=== PATIENT | female | born 1940 | race Caucasian/White ===

== ENCOUNTER 2018-04-07 16:35 | Inpatient (IN) | payer OTHER ==
[2018-04-07] MEDS ORDERED: NITROGLYCERIN 0.4 MG/TAB SL ONE (17:07)
[2018-04-07] MEDS ORDERED: ASPIRIN 81 MG CHEWABLE TABLET ONE (17:07)
[2018-04-07 17:11] LABS: Absolute Lymphocytes (CBC) 3.1 K/uL (0.7-4.9); Absolute Monocytes 0.9 K/uL (0.1-1.3); Absolute Neutrophil 5.4 K/uL (1.8-8.0); Basophils % 0.2 % (0-1.3); Eosinophils % 0.9 % (0-4.4); Lymphocytes % 32.5 % (15.3-44.8); MCH 30.5 pg (27.0-35.0); MCV 90.7 fL (80-100); RBC Red Blood Cell Count 4.85 M/uL (3.86-4.86)
--- NOTE | 2018-04-07 17:15 | RAD REPORT ---
EXAM DESCRIPTION: RAD - Chest Single View - 04/07/2018 5:00 pm CLINICAL HISTORY: CHEST PAIN<Reason For Exam>CHEST PAIN COMPARISON: CHEST SINGLE VIEW dated 10/27/2015; CHEST PA AND LAT 2 VIEW dated 07/23/2010<Comparisons> TECHNIQUE: AP portable chest image was obtained 1657 hour . FINDINGS: Lung volumes are low accentuating baseline interstitial pattern. This could potentially ma sk early interstitial edema or infiltrate. Mediastinum is distorted by rotation. No peripheral mass o r consolidation. Heart and vasculature are normal. No measurable pleural effusion and no pneumothorax . No gross bony abnormality seen. No acute aortic findings suspected. IMPRESSION: No peripheral mass or consolidation. Prominent lung markings due to shallow inspiration. This could mask early interstitial edema or infil trate.
[2018-04-07 17:26] LABS: Protime INR 0.93
[2018-04-07 17:41] LABS: Albumin 3.6 g/dL (3.4-5.0); Bilirubin Direct 0.1 mg/dL (0-0.2); Bilirubin Total 0.2 mg/dL (0.2-1.0); CKMB Creatine Kinase MB 3.7 ng/mL (0.3-3.6); Magnesium 2.2 mg/dL (1.8-2.4); Potassium 3.9 mmol/L (3.5-5.1); Protein, Total 7.1 g/dL (6.4-8.2)
--- NOTE | 2018-04-07 18:13 | ER ---
Nurse's Notes [facility] Name: Kyleigh Pace Age: 77 yrs Sex: Female : 1940 Arrival Date: 04/07/2018 Time: 16:36 Bed 7 Private MD: Mercedes Corrales Diagnosis: Non-ST elevation (NSTEMI) myocardial infarction Presentation: 04/07 16:44 Presenting complaint: Patient states: i think i am having a heart attack, chest pain, ch worst of my life in the middle of my chest, feels like someone punched me. happened after I walked out of my pain management drs office. I took two baby asprin at home. pain started at 1500. Transition of care: patient was not received from another setting of care. Onset of symptoms was April 07, 2018 at 15:00. Risk Assessment: Do you want to hurt yourself or someone else? Patient reports no desire to harm self or others. Initial Sepsis Screen: Does the patient meet any 2 criteria? No. Patient's initial sepsis screen is negative. Does the patient have a suspected source of infection? No. Patient's initial sepsis screen is negative. Care prior to arrival: Medication(s) given: ASA, 81 mg, x 2. 16:44 Method Of Arrival: Ambulatory 16:44 Acuity: ENOC 2 Triage Assessment: 16:46 General: Appears in no apparent distress. uncomfortable, Behavior is anxious. Pain: Complains of pain in xyphoid area and mid-sternal area Pain currently is 8 out of 10 on a pain scale. Historical: - Allergies: 16:46 Codeine; 16:46 Morphine; - Home Meds: 16:46 losartan oral oral [Active]; Atenolol Oral [Active]; Prilosec Oral [Active]; Tramadol Oral [Active]; - PMHx: 16:46 cervical stenosis; Hypertension; scoliosis; GERD; chronic neck and back pain; - PSHx: 16:46 Hysterectomy; - Immunization history:: Adult Immunizations up to date, Pneumococcal vaccine is up to date, Flu vaccine is up to date. - Social history:: Smoking status: Patient/guardian denies using tobacco, Patient uses alcohol, on a daily basis. - Ebola Screening: : Patient negative for fever greater than or equal to 101.5 degrees Fahrenheit, and additional compatible Ebola Virus Disease symptoms Patient denies exposure to infectious person Patient denies travel to an Ebola-affected area in the 21 days before illness onset No symptoms or risks identified at this time. Screenin:46 Abuse screen: Denies threats or abuse. Denies injuries from another. Nutritional mg2 screening: No deficits noted. Tuberculosis screening: No symptoms or risk factors identified. Fall Risk IV access (20 points). Assessment: 16:57 General: Appears uncomfortable, Behavior is calm, cooperative. Pain: Complains of pain mg2 in chest and mid-sternal area Pain does not radiate. Pain currently is 5 out of 10 on a pain scale. Quality of pain is described as aching, Pain began gradually, 2 hours ago. Is intermittent. Neuro: Level of Consciousness is awake, alert, obeys commands, Oriented to person, place, time, situation. Cardiovascular: Capillary refill < 3 seconds Patient's skin is warm and dry. Rhythm is sinus rhythm Chest pain is described as "worst pain of my life", quality is pressure, is located in chest wall began 2 hours prior to arrival episodes are intermittent. Respiratory: Airway is patent Respiratory effort is even, unlabored, Respiratory pattern is regular, symmetrical. GI: Reports nausea. : No signs and/or symptoms were reported regarding the genitourinary system. EENT: No signs and/or symptoms were reported regarding the EENT system. Derm: Skin is intact, Skin is pink, warm \\T\\ dry. normal. Musculoskeletal: Circulation, motion, and sensation intact. 17:44 Reassessment: Patient appears in no apparent distress at this time. Patient and/or mg2 family updated on plan of care and expected duration. Pain level reassessed. Patient is alert, oriented x 3, equal unlabored respirations, skin warm/dry/pink. 18:37 Reassessment: Patient appears in no apparent distress at this time. Patient and/or mg2 family updated on plan of care and expected duration. Pain level reassessed. Patient is alert, oriented x 3, equal unlabored respirations, skin warm/dry/pink. 19:49 Reassessment: Patient appears in no apparent distress at this time. Patient and/or mg2 family updated on plan of care and expected duration. Pain level reassessed. Patient is alert, oriented x 3, equal unlabored respirations, skin warm/dry/pink. 04/08 00:01 Reassessment: further documentation is in [facility], patient is icu-hold. mg2 03:04 Reassessment: patient endorsed to EDISON Lima for continuity of care. mg2 06:29 Reassessment: pt bilateral groin shaved for laborer tin can. pt vomited and wet the bed, pt ak1 requested not to moved and to have linens changed while on the laborer tin can table. report given to laborer tin can at bedside. . Vital Signs: 04/07 16:46 BP 177 / 93; Pulse 83; Resp 15; Temp 98.1; Pulse Ox 97% on R/A; Weight 76.66 kg; Height ch 5 ft. 5 in. (165.10 cm); Pain 8/10; 17:44 BP 133 / 81; Pulse 78; Resp 18; Pulse Ox 97% on R/A; mg2 18:37 BP 158 / 97; Pulse 82; Resp 18; Pulse Ox 97% ; Pain 6/10; mg2 19:49 BP 138 / 83; Pulse 89; Resp 18; Pulse Ox 96% on R/A; Pain 5/10; mg2 22:58 BP 144 / 81; Pulse 77; Resp 18; Pulse Ox 96% on R/A; Pain 5/10; mg2 23:09 BP 154 / 87; Pulse 81; Resp 18; Pulse Ox 94% on R/A; Pain 4/10; mg2 16:46 Body Mass Index 28.12 (76.66 kg, 165.10 cm) ED Course: 16:36 Patient arrived in ED. sb2 16:37 Mercedes Corrales MD is Private Physician. sb2 16:39 [facility] jr8 16:39 Crow Pulido MD is Attending Physician. jr8 16:45 Triage completed. ch 16:45 Lucas Baumann, EDISON is Primary Nurse. mg2 16:46 Patient has correct armband on for positive identification. residential monitor on. Pulse mg2 ox on. NIBP on. Door closed. Warm blanket given. 16:46 Arm band placed on left wrist. Patient placed in an exam room, on a stretcher. ch 16:57 No provider procedures requiring assistance completed. Inserted saline lock: 20 gauge mg2 in left wrist, using aseptic technique. Blood collected. by senior scheduler Taylor. 16:57 Patient maintains SpO2 saturation greater than 95% on room air. mg2 16:58 X-ray completed. Portable x-ray completed in exam room. Patient tolerated procedure ml well. 16:59 XRAY Chest (1 view) In Process Unspecified. EDMS 17:08 EKG done, by tire and lube technician. reviewed by Juan F WALKER. sm3 18:11 Neftaly Nicolas MD is Hospitalizing Provider. jr8 21:32 Repeat lab(s) drawn. by me, sent to lab. mg2 22:10 Notified Nurse Practitioner and/or Physician Neurodiagnostic Technologist of a critical lab result(s), lp1 Troponin 5.54. 04/08 02:57 Patient admitted, IV remains in place. ak1 03:15 Janie Song, RN is Primary Nurse. ak1 Administered Medications: 04/07 17:08 Drug: Nitroglycerin 0.4 mg Route: Sublingual; mg2 17:43 Follow up: Response: No adverse reaction; Marked relief of symptoms mg2 17:12 Drug: Aspirin Chewable Tablet 162 mg Route: PO; mg2 17:43 Follow up: Response: No adverse reaction; Marked relief of symptoms mg2 18:36 Drug: Nitroglycerin Ointment 2 % 1 inches Route: Transdermal; Site: anterior chest wall;mg2 19:10 Follow up: Response: No adverse reaction; Marked relief of symptoms mg2 18:37 Drug: Effient 60 mg Route: PO; mg2 19:10 Follow up: Response: No adverse reaction; Marked relief of symptoms mg2 18:37 Drug: Lovenox 1 mg/kg Route: Sub-Q; Site: right lower abdomen; mg2 19:10 Follow up: Response: No adverse reaction mg2 20:49 Drug: fentaNYL (PF) 25 mcg Route: IVP; Site: left wrist; mg2 23:08 Follow up: Response: No adverse reaction mg2 20:49 Drug: Zofran 4 mg Route: IVP; Site: left wrist; mg2 23:08 Follow up: Response: No adverse reaction; Marked relief of symptoms mg2 21:30 Drug: Nitro Drip - (Nitroglycerin 50 mg, D5W 250 ml) Route: IV; Rate: 5 mcg/min; Site: mg2 left wrist; 04/08 02:58 Follow up: IV Status: Infusion continued upon admission ak1 04/07 22:38 Drug: Ativan 0.5 mg Route: IVP; Site: left wrist; mg2 23:09 Follow up: Response: No adverse reaction; Marked relief of symptoms mg2 04/08 00:08 Drug: Zofran 4 mg Route: IVP; Site: left wrist; mg2 01:30 Follow up: Response: No adverse reaction; Marked relief of symptoms mg2 Outcome: 04/07 18:12 Decision to Hospitalize by Provider. jr8 04/08 02:47 Admitted to ER Hold. Please see [facility] for further documentation. ak1 critical Instructed on the need for admit. 06:31 Patient left the ED. ak1 Signatures: Dispatcher [employer] EDMS Maria A Gamino, RN RN Kayleen Navas Laura, RN RN [email or web address] Juan F Flores PA PA jr8 Janie Song RN RN ak1 Kat Sim sb2 Lucas Baumann RN RN mg2 Fawn Haney 3
--- NOTE | 2018-04-07 18:14 | EDPHYS ---
Physician Documentation [facility] Name: Kyleigh Pace Age: 77 yrs Sex: Female : 1940 Arrival Date: 04/07/2018 Time: 16:36 Bed 7 Private MD: Mercedes Corrales ED Physician Crow Pulido HPI: 04/07 18:05 This 77 yrs old Female presents to ER via Ambulatory with complaints of Chest jr8 Pain > 30 y/o. 18:05 The patient or guardian reports chest pain that is located primarily in the substernal jr8 area. Onset: acutely, today. The pain radiates to back. Associated signs and symptoms: Pertinent positives: diaphoresis, nausea. The chest pain is described as a heaviness, a pressure. Duration: The patient or guardian reports a single episode, that is still ongoing. Modifying factors: The symptoms are alleviated by NTG, the symptoms are aggravated by emotionally stressful situations. Severity of pain: At its worst the pain was moderate in the emergency department the pain has improved mildly. The patient has not experienced similar symptoms in the past. The patient has not recently seen a physician. Historical: - Allergies: 16:46 Codeine; ch 16:46 Morphine; ch - Home Meds: 16:46 losartan oral oral [Active]; Atenolol Oral [Active]; Prilosec Oral [Active]; Tramadol ch Oral [Active]; - PMHx: 16:46 cervical stenosis; Hypertension; scoliosis; GERD; chronic neck and back pain; ch - PSHx: 16:46 Hysterectomy; ch - Immunization history:: Adult Immunizations up to date, Pneumococcal vaccine is up to date, Flu vaccine is up to date. - Social history:: Smoking status: Patient/guardian denies using tobacco, Patient uses alcohol, on a daily basis. - Ebola Screening: : Patient negative for fever greater than or equal to 101.5 degrees Fahrenheit, and additional compatible Ebola Virus Disease symptoms Patient denies exposure to infectious person Patient denies travel to an Ebola-affected area in the 21 days before illness onset No symptoms or risks identified at this time. ROS: 18:05 Eyes: Negative for injury, pain, redness, and discharge, ENT: Negative for injury, jr8 pain, and discharge, Neck: Negative for injury, pain, and swelling, Respiratory: Negative for shortness of breath, cough, wheezing, and pleuritic chest pain, Abdomen/GI: Negative for abdominal pain, nausea, vomiting, diarrhea, and constipation, Back: Negative for injury and pain, MS/Extremity: Negative for injury and deformity, Skin: Negative for injury, rash, and discoloration, Neuro: Negative for headache, weakness, numbness, tingling, and seizure. 18:05 Cardiovascular: Positive for chest pain, Negative for edema, orthopnea, palpitations, paroxysmal nocturnal dyspnea. Exam: 18:05 Eyes: Pupils equal round and reactive to light, extra-ocular motions intact. Lids and jr8 lashes normal. Conjunctiva and sclera are non-icteric and not injected. Cornea within normal limits. Periorbital areas with no swelling, redness, or edema. ENT: Nares patent. No nasal discharge, no septal abnormalities noted. Tympanic membranes are normal and external auditory canals are clear. Oropharynx with no redness, swelling, or masses, exudates, or evidence of obstruction, uvula midline. Mucous membranes moist. Neck: Trachea midline, no thyromegaly or masses palpated, and no cervical lymphadenopathy. Supple, full range of motion without nuchal rigidity, or vertebral point tenderness. No Meningismus. Cardiovascular: Regular rate and rhythm with a normal S1 and S2. No gallops, murmurs, or rubs. Normal PMI, no JVD. No pulse deficits. Respiratory: Lungs have equal breath sounds bilaterally, clear to auscultation and percussion. No rales, rhonchi or wheezes noted. No increased work of breathing, no retractions or nasal flaring. Abdomen/GI: Soft, non-tender, with normal bowel sounds. No distension or tympany. No guarding or rebound. No evidence of tenderness throughout. Back: No spinal tenderness. No costovertebral tenderness. Full range of motion. Skin: Warm, dry with normal turgor. Normal color with no rashes, no lesions, and no evidence of cellulitis. MS/ Extremity: Pulses equal, no cyanosis. Neurovascular intact. Full, normal range of motion. Neuro: Awake and alert, GCS 15, oriented to person, place, time, and situation. Cranial nerves II-XII grossly intact. Motor strength 5/5 in all extremities. Sensory grossly intact. Cerebellar exam normal. Normal gait. 18:05 ECG was reviewed by the Attending Physician. Vital Signs: 16:46 BP 177 / 93; Pulse 83; Resp 15; Temp 98.1; Pulse Ox 97% on R/A; Weight 76.66 kg; Height ch 5 ft. 5 in. (165.10 cm); Pain 8/10; 17:44 BP 133 / 81; Pulse 78; Resp 18; Pulse Ox 97% on R/A; mg2 18:37 BP 158 / 97; Pulse 82; Resp 18; Pulse Ox 97% ; Pain 6/10; mg2 19:49 BP 138 / 83; Pulse 89; Resp 18; Pulse Ox 96% on R/A; Pain 5/10; mg2 22:58 BP 144 / 81; Pulse 77; Resp 18; Pulse Ox 96% on R/A; Pain 5/10; mg2 23:09 BP 154 / 87; Pulse 81; Resp 18; Pulse Ox 94% on R/A; Pain 4/10; mg2 16:46 Body Mass Index 28.12 (76.66 kg, 165.10 cm) ch MDM: 16:39 Patient medically screened. jr8 18:05 HEART Score: History: Highly Suspicious (2), ECG: Non specific repolarization jr8 disturbance / LBTB / PM (1), Age: > or = 65 years (2), Risk Factors: 1 or 2 risk factors (1), [Hypercholesterolemia] [Hypertension] Troponin: > 1 and < 3 x normal limit (1). The patient was given aspirin in the Emergency Department. Data reviewed: vital signs, nurses notes, lab test result(s), EKG, radiologic studies, plain films. Data interpreted: Pulse oximetry: on room air is 97 %. Interpretation: normal. Counseling: I had a detailed discussion with the patient and/or guardian regarding: the historical points, exam findings, and any diagnostic results supporting the discharge/admit diagnosis, lab results, radiology results, the need for further work-up and treatment in the hospital. Physician consultation: Neftaly Nicolas MD was called at 18:09, was contacted at 18:09, regarding admission, to the ICU, consult, patient's condition, and will see patient. ED course: Dr. Jones consulted and will see patient as well today. NPO after midnight . 18:10 ED course: Discussed in detail findings of labs and EKG with both family and patient. jr8 The need for ICU with close monitoring as there is concerning findings of cardiac related injury. Patient and family good with this. 04/07 16:47 Order name: Basic Metabolic Panel; Complete Time: 17:43 ch 04/07 16:47 Order name: CBC with Diff; Complete Time: 17:24 ch 04/07 16:47 Order name: Ckmb; Complete Time: 17:43 ch 04/07 16:47 Order name: CPK; Complete Time: 17:43 ch 04/07 16:47 Order name: LFT's; Complete Time: 17:43 ch 04/07 16:47 Order name: Magnesium; Complete Time: 17:43 ch 04/07 16:47 Order name: NT PRO-BNP; Complete Time: 17:43 ch 04/07 16:47 Order name: PT-INR; Complete Time: 17:35 ch 04/07 16:47 Order name: Ptt, Activated; Complete Time: 17:35 ch 04/07 16:47 Order name: Troponin (emerg Dept Use Only); Complete Time: 17:55 ch 04/07 21:57 Order name: Lipid Profile; Complete Time: 22:02 EDMT 04/07 22:09 Order name: Troponin I; Complete Time: 22:12 EDMT 04/07 22:59 Order name: Urine Dipstick--Ancillary (enter results) ny 04/07 23:28 Order name: Urine Dipstick-Ancillary; Complete Time: 23:43 EDMT 04/07 16:47 Order name: XRAY Chest (1 view); Complete Time: 17:17 ch 04/07 16:47 Order name: EKG; Complete Time: 16:48 04/07 20:27 Order name: CONS Physician Consult EDMT 04/08 05:22 Order name: CBC with Automated Diff EDMT 04/08 05:27 Order name: Basic Metabolic Panel EDMT 04/08 05:38 Order name: Troponin I EDMT 04/07 16:47 Order name: Cardiac monitoring; Complete Time: 16:55 ch 04/07 16:47 Order name: EKG - Nurse/Tech; Complete Time: 16:55 04/07 16:47 Order name: IV Saline Lock; Complete Time: 16:55 ch 04/07 16:47 Order name: Labs collected and sent; Complete Time: 16:55 04/07 16:47 Order name: O2 Per Protocol; Complete Time: 16:55 04/07 16:47 Order name: O2 Sat Monitoring; Complete Time: 16:55 04/07 22:17 Order name: EKG - Nurse/Tech; Complete Time: 22: jr8 EC:05 Rate is 80 beats/min. Rhythm is regular, Normal Sinus Rhythm. QRS [place] is Normal. DE jr8 interval is normal at 176 msec. QRS interval is normal at 80 msec. QT interval is normal at 459 msec. Q waves are Present in leads V1, V2, V3. T waves are Normal. No ST changes noted. Clinical impression: Anterior OR - age indeterminate. Interpreted by me. Reviewed by me. Administered Medications: 17:08 Drug: Nitroglycerin 0.4 mg Route: Sublingual; mg2 17:43 Follow up: Response: No adverse reaction; Marked relief of symptoms mg2 17:12 Drug: Aspirin Chewable Tablet 162 mg Route: PO; mg2 17:43 Follow up: Response: No adverse reaction; Marked relief of symptoms mg2 18:36 Drug: Nitroglycerin Ointment 2 % 1 inches Route: Transdermal; Site: anterior chest wall;mg2 19:10 Follow up: Response: No adverse reaction; Marked relief of symptoms mg2 18:37 Drug: Effient 60 mg Route: PO; mg2 19:10 Follow up: Response: No adverse reaction; Marked relief of symptoms mg2 18:37 Drug: Lovenox 1 mg/kg Route: Sub-Q; Site: right lower abdomen; mg2 19:10 Follow up: Response: No adverse reaction mg2 20:49 Drug: fentaNYL (PF) 25 mcg Route: IVP; Site: left wrist; mg2 23:08 Follow up: Response: No adverse reaction mg2 20:49 Drug: Zofran 4 mg Route: IVP; Site: left wrist; mg2 23:08 Follow up: Response: No adverse reaction; Marked relief of symptoms mg2 21:30 Drug: Nitro Drip - (Nitroglycerin 50 mg, D5W 250 ml) Route: IV; Rate: 5 mcg/min; Site: mg2 left wrist; 04/08 02:58 Follow up: IV Status: Infusion continued upon admission ak 04/07 22:38 Drug: Ativan 0.5 mg Route: IVP; Site: left wrist; mg2 23:09 Follow up: Response: No adverse reaction; Marked relief of symptoms mg2 04/08 00:08 Drug: Zofran 4 mg Route: IVP; Site: left wrist; mg2 01:30 Follow up: Response: No adverse reaction; Marked relief of symptoms mg2 Disposition: 04/07 18:05 Critical Care:. jr8 04/08 11:16 Co-signature as Attending Physician, Crow Pulido MD I agree with the assessment and kdr plan of care. Disposition: 04/07/18 18:12 Hospitalization ordered by Neftaly Nicolas for Inpatient Admission. Preliminary diagnosis is Non-ST elevation (NSTEMI) myocardial infarction. - Bed requested for [facility]. - Status is Inpatient Admission. ak1 - Condition is Fair. - Problem is new. - Symptoms have improved. UTI on Admission? No Critical care time excluding procedures: 04/07 18:05 Critical care time: Bedside Care: 20 minutes, Consultation: 10 minutes, Family jr8 Intervention: 10 minutes. Total time: 40 minutes Signatures: Dispatcher [employer] EDMaria A Stevens, RN RN Crow Pulido MD MD [facility] Juan F Flores PA PA jr8 Janie Song RN RN ak1 Shelli Lopez RN RN tl2 Lucas Baumann RN RN mg2 Corrections: (The following items were deleted from the chart) 04/08 04:25 04/07 18:12 Hospitalization Ordered by Neftaly Nicolas MD for Inpatient Admission. tl2 Preliminary diagnosis is Non-ST elevation (NSTEMI) myocardial infarction. Bed requested for Intensive Care Unit. Status is Inpatient Admission. Condition is Fair. Problem is new. Symptoms have improved. UTI on Admission? No. jr8 04/08 06:31 04:25 04/07/2018 18:12 Hospitalization Ordered by Neftaly Nicolas MD for Inpatient ak1 Admission. Preliminary diagnosis is Non-ST elevation (NSTEMI) myocardial infarction. Bed requested for [facility] ER HOLD. Status is Inpatient Admission. Condition is Fair. Problem is new. Symptoms have improved. UTI on Admission? No. tl2
[2018-04-07] MEDS ORDERED: NITROGLYCERIN 1 GM PKT TD ONE (18:22)
[2018-04-07] MEDS ORDERED: ENOXAPARIN 80 MG/0.8 ML SQ ONE (18:23)
[2018-04-07] MEDS ORDERED: PRASUGREL (EFFIENT) 10 MG TAB ONE (18:26)
--- NOTE | 2018-04-07 19:19 | P.HP ---
Certification for Inpatient Patient admitted to: Inpatient With expected LOS: >2 Midnights Practitioner: I am a practitioner with admitting privileges, knowledge of patient current condition, hospital course, and medical plan of care. Services: Services provided to patient in accordance with Admission requirements found in Title 42 Section 412.3 of the Code of Federal Regulations Patient History Date of Service: 04/07/18 Reason for admission: NSTEMI History of Present Illness: Ms Pace is a 77-year-old woman with history of hypertension, restless legs syndrome, anxiety who presents to ER complaining of substernal chest pain. Her symptoms start about half an hr prior to arrival, she described the pain as pressure-like, it was associated with nausea, shortness of breath, and diaphoresis. She has never had this kind of pain in the past. Intensity of the pain was 10/10. At arrival to ER, she was treated with nitro sublingual, initially the pain was relieved, but then she had new episode of chest pain. With farther nitro sublingual administration subsided the pain. EKG shows normal sinus rhythm with Q-waves in anteroseptal leads. Troponin I 0.75. Allergies codeine Allergy (Verified 12/25/15 00:28) Unknown morphine Allergy (Verified 12/25/15 00:28) Unknown Home medications list reviewed: Yes Home Medications: Atenolol [Tenormin*] 25 mg PO DAILY 12/25/15 Atorvastatin Calcium [Lipitor*] 20 mg PO DAILY 12/25/15 Losartan Potassium [Cozaar*] 100 mg PO DAILY 12/25/15 Methocarbamol [Robaxin*] 750 mg PO TID PRN 12/25/15 Temazepam [Restoril] 30 mg PO BEDTIME 12/25/15 traMADol HCL [Ultram*] 50 mg PO TID PRN 12/25/15 levoFLOXacin [Levaquin] 500 mg PO DAILY #7 tab 12/27/15 metroNIDAZOLE [Flagyl] 500 mg PO Q8H #21 tablet 12/27/15 predniSONE [Deltasone] 20 mg PO DAILY #5 tab 12/27/15 Potassium Chloride [K-Dur] 20 meq PO DAILY #15 tab.er.prt 12/29/15 Fluconazole [Diflucan] 150 mg PO DAILY #3 tablet 01/02/16 - Past Medical/Surgical History Diabetic: No -: cervical stenosis -: degenerative disc disease -: OA -: neuropathy -: restless leg syndrome -: HTN -: UTI -: hiatal hernia -: hysterectomy -: rhinoplasty -: bladder suspension - Family History Father -: Heart disease Mother -: Stroke - Social History Alcohol use: Yes CD- Drugs: Yes Caffeine use: No Place of Residence: Home Review of Systems 10-point ROS is otherwise unremarkable Physical Examination - Physical Exam General: Alert, In no apparent distress HEENT: Atraumatic, PERRLA, Mucous membr. moist/pink, EOMI, Sclerae nonicteric Neck: Supple, 2+ carotid pulse no bruit, No LAD, Without JVD or thyroid abnormality Respiratory: Clear to auscultation bilaterally, Normal air movement Cardiovascular: Regular rate/rhythm, Normal S1 S2 Gastrointestinal: Normal bowel sounds, No tenderness Musculoskeletal: No tenderness Integumentary: No rashes Neurological: Normal speech, Normal strength at 5/5 x4 extr, Normal tone, Normal affect Lymphatics: No axilla or inguinal lymphadenopathy - Studies Laboratory Data (last 24 hrs) 04/07/18 16:50: PT 11.0, INR 0.93, APTT 32.9 04/07/18 16:50: WBC 9.5, Hgb 14.8, Hct 44.0, Plt Count 276 04/07/18 16:50: Sodium 140, Potassium 3.9, BUN 18, Creatinine 0.80, Glucose 114 H, Magnesium 2.2, Total Bilirubin 0.2, AST 26, ALT 21, Alkaline Phosphatase 77 Assessment and Plan - Problems (Diagnosis) (1) Non-ST elevation AL (NSTEMI) Current Visit: Yes Status: Acute (2) Hypertension Current Visit: Yes Status: Acute Qualifiers: Hypertension type: essential hypertension Qualified Code(s): I10 - Essential (primary) hypertension - Plan The patient will be admitted to ICU due to a non ST elevation AL. Currently she is pain-free, will continue with nitro paste. Initial repeat chest pain will change to nitro continuous infusion. Dr. Jones has been notified about the patient, and he will see her in the morning. She will be NPO after midnight for potential left heart catheterization. - Advance Directives Does patient have a Living Will: No Does patient have a Durable POA for Healthcare: No - Code Status/Comfort Care Code Status Assessed: Yes Code Status: Full Code
[2018-04-07] MEDS ORDERED: FENTANYL CITR 100 MCG/2 ML ONE (20:48)
[2018-04-07] MEDS ORDERED: ONDANSETRON 4 MG/2 ML VIAL ONE ×2 (20:48→23:28)
[2018-04-07] MEDS ORDERED: ACETAMINOPHEN 500 MG TAB PO PRN (21:03)
[2018-04-07] MEDS ORDERED: TICAGRELOR 90 MG TABLET PO SCH (21:03)
[2018-04-07] MEDS ORDERED: NITROGLYCERIN 0.4 MG/TAB SL PRN (21:03)
[2018-04-07] MEDS: METOPROLOL TAR 50 MG TAB PO SCH (21:03)
[2018-04-07] MEDS ORDERED: ENOXAPARIN 100 MG/ML SYR SQ SCH (21:03)
[2018-04-07] MEDS ORDERED: ATORVASTATIN 80 MG TAB PO SCH (21:03)
[2018-04-07] MEDS ORDERED: NITROGLYCERIN/D5W 50 MG/250 ML BTL IV ONE (22:27)
[2018-04-07] MEDS ORDERED: LORazepam 2 MG/ML VIAL ONE (22:39)
[2018-04-07 23:28] LABS: Urine Blood 2+ (NEG); Urine Glucose NEGATIVE (NEG); Urine Protein TRACE (NEG); Urine pH 7.5 (5.0-7.0)
[2018-04-08] MEDS ORDERED: NITROGLYCERIN/D5W 50 MG/250 ML BTL IV PRN (00:11)
[2018-04-08] MEDS ORDERED: METOPROLOL TAR 50 MG TAB ONE (00:25)
[2018-04-08] MEDS ORDERED: ATORVASTATIN 20 MG TAB ONE (00:25)
[2018-04-08] MEDS: FENTANYL CITR 100 MCG/2 ML IV PRN ×2 (00:51→04:14)
[2018-04-08] MEDS ORDERED: ACETAMINOPHEN 500 MG TAB ONE (02:02)
[2018-04-08] MEDS ORDERED: ONDANSETRON 4 MG/2 ML VIAL IV PRN (02:27)
[2018-04-08] MEDS ORDERED: ONDANSETRON 4 MG/2 ML VIAL ONE (04:13)
[2018-04-08 05:03] VITALS: BMI 28.1
[2018-04-08 05:10] LABS: Absolute Lymphocytes (CBC) 1.2 K/uL (0.7-4.9); Absolute Monocytes 0.4 K/uL (0.1-1.3); Absolute Neutrophil 7.5 K/uL (1.8-8.0); Basophils % 0.1 % (0-1.3); Lymphocytes % 13.2 % (15.3-44.8); MCH 30.7 pg (27.0-35.0); MCV 88.7 fL (80-100); MPV 8.8 fL (7.6-11.3); Monocytes % 4.2 % (3.3-12.3); RBC Red Blood Cell Count 4.51 M/uL (3.86-4.86)
[2018-04-08 05:26] LABS: Potassium 3.6 mmol/L (3.5-5.1)
[2018-04-08] MEDS ORDERED: HEPA 1000U/500MLS 1,000 UNIT/500 ML BAG IV ONE (05:57)
[2018-04-08] MEDS ORDERED: LIDOCAINE 1% MPF 2 ML AMPULE ONE (05:58)
[2018-04-08] MEDS ORDERED: METOCLOPRAMIDE 10 MG/2mL INJ ONE (06:20)
[2018-04-08] MEDS ORDERED: NA CHLORIDE 0.9% 500 ML ONE (06:52)
[2018-04-08] MEDS ORDERED: METOCLOPRAMIDE 10 MG/2mL INJ IV SCH (07:00)
[2018-04-08] MEDS ORDERED: NA CHLORIDE 0.9% 0 ML ONE (07:08)
[2018-04-08] MEDS ORDERED: ATROPINE SULF 1 MG/10 ML SYR IV ONE (07:08)
[2018-04-08] MEDS ORDERED: MIDAZOLAM HCL 2 MG/2 ML INJ ONE ×2 (07:10→07:13)
[2018-04-08] MEDS ORDERED: FENTANYL CITR 100 MCG/2 ML ONE (07:11)
[2018-04-08] MEDS ORDERED: PRASUGREL (EFFIENT) 10 MG TAB ONE (07:34)
[2018-04-08] MEDS ORDERED: ASPIRIN EC 81 MG TAB PO SCH (09:00)
[2018-04-08] MEDS ORDERED: LISINOPRIL 5 MG TAB PO SCH (09:00)
[2018-04-08] MEDS ORDERED: ENOXAPARIN 80 MG/0.8 ML SQ SCH (09:00)
[2018-04-08 09:13] VITALS: O2SAT 96
[2018-04-08] MEDS: METOPROLOL TAR 50 MG TAB PO SCH (13:03)
--- NOTE | 2018-04-08 16:18 | EKG ---
Test Date: 2018-04-07 Test Time: 22:15:50 Bulker: MG MEASUREMENT RESULTS: Intervals: Rate: 82 TX: 174 QRSD: 78 QT: 414 QTc: 483 [place]: P: 31 TX: 174 QRS: -19 T: 60 INTERPRETIVE STATEMENTS: Normal sinus rhythm Anteroseptal infarct, age undetermined Abnormal ECG Compared to ECG 04/07/2018 18:53:31 No significant changes Electronically Signed On 04-08-18 16:14:40 CDT by Calin Jones
--- NOTE | 2018-04-08 16:19 | EKG ---
Test Date: 2018-04-07 Test Time: 18:53:31 Lead Programmer: MG MEASUREMENT RESULTS: Intervals: Rate: 82 FL: 168 QRSD: 82 QT: 392 QTc: 457 [place]: P: 25 FL: 168 QRS: -19 T: 62 INTERPRETIVE STATEMENTS: Normal sinus rhythm Anteroseptal infarct, age undetermined Abnormal ECG Compared to ECG 04/07/2018 16:44:42 Left ventricular hypertrophy no longer present Myocardial infarct finding still present Electronically Signed On 04-08-18 16:14:48 CDT by Calin Jones
--- NOTE | 2018-04-08 16:20 | EKG ---
Test Date: 2018-04-07 Test Time: 16:44:42 Bag Liner: SHAI MEASUREMENT RESULTS: Intervals: Rate: 80 WI: 176 QRSD: 80 QT: 398 QTc: 459 [place]: P: 18 WI: 176 QRS: -21 T: 45 INTERPRETIVE STATEMENTS: Normal sinus rhythm Moderate voltage criteria for LVH, may be normal variant Anteroseptal infarct, age undetermined Abnormal ECG Compared to ECG 12/24/2015 17:42:38 Myocardial infarct finding now present Electronically Signed On 04-08-18 16:14:53 CDT by Calin Jones
[2018-04-08] MEDS ORDERED: PRASUGREL (EFFIENT) 10 MG TAB PO SCH (17:00)
[2018-04-08 17:44] VITALS: BP 134/74; TEMP 98
--- NOTE | 2018-04-08 18:17 | P.SSS ---
Patient History Date of Service: 04/08/18 Reason for admission: NSTEMI History of Present Illness: Ms Pace is a 77-year-old woman with history of hypertension, restless legs syndrome, anxiety who presents to ER complaining of substernal chest pain. Her symptoms start about half an hr prior to arrival, she described the pain as pressure-like, it was associated with nausea, shortness of breath, and diaphoresis. She has never had this kind of pain in the past. Intensity of the pain was 10/10. At arrival to ER, she was treated with nitro sublingual, initially the pain was relieved, but then she had new episode of chest pain. With farther nitro sublingual administration subsided the pain. EKG shows normal sinus rhythm with Q-waves in anteroseptal leads. Troponin I 0.75. Allergies codeine Allergy (Verified 12/25/15 00:28) Unknown morphine Allergy (Verified 12/25/15 00:28) Unknown Home Medications: Atenolol [Tenormin*] 25 mg PO DAILY 12/25/15 Temazepam [Restoril] 30 mg PO BEDTIME 12/25/15 traMADol HCL [Ultram*] 50 mg PO TID PRN 12/25/15 Gabapentin [Neurontin*] 300 mg PO QID 04/07/18 Omeprazole [Prilosec] 40 mg PO DAILY 04/07/18 Amlodipine Besylate [Norvasc] 10 mg PO DAILY #30 tablet 04/08/18 Prasugrel Hydrochloride [Effient] 10 mg PO DAILY #30 tab 04/08/18 Simvastatin [Zocor] 80 mg PO DAILY #30 tablet 04/08/18 - Past Medical/Surgical History Has patient received pneumonia vaccine in the past: Yes Diabetic: No -: cervical stenosis -: degenerative disc disease -: OA -: neuropathy -: restless leg syndrome -: HTN -: UTI -: hiatal hernia -: hysterectomy -: rhinoplasty -: bladder suspension - Family History Father -: Heart disease Mother -: Stroke Notes: cardiomyopathy - Social History Smoking Status: Never smoker Alcohol use: Yes CD- Drugs: No Caffeine use: Yes Place of Residence: Home Review of Systems 10-point ROS is otherwise unremarkable Physical Examination - Vital Signs Temperature: 98.0 F Blood Pressure: 134/74 Pulse: 79 Respirations: 16 Pulse Ox (%): 95 - Physical Exam General: Alert, In no apparent distress HEENT: Atraumatic, PERRLA, Mucous membr. moist/pink, EOMI, Sclerae nonicteric Neck: Supple, 2+ carotid pulse no bruit, No LAD, Without JVD or thyroid abnormality Respiratory: Clear to auscultation bilaterally, Normal air movement Cardiovascular: Regular rate/rhythm, Normal S1 S2 Gastrointestinal: Normal bowel sounds, No tenderness Musculoskeletal: No tenderness Integumentary: No rashes Neurological: Normal gait, Normal speech, Normal strength at 5/5 x4 extr, Normal tone, Normal affect Lymphatics: No axilla or inguinal lymphadenopathy - Diagnosis (Problem(s)) (1) Hypertension Status: Chronic Qualifiers: Hypertension type: essential hypertension Qualified Code(s): I10 - Essential (primary) hypertension (2) Non-ST elevation NE (NSTEMI) Status: Acute Treatment Summary: Overall during the hospital stay patient remained stable The patient was initially admitted to the hospital for a non ST elevation NE. Patient had elevated troponin. Cardiology was consulted. Patient was started on ACS protocol with weight based Lovenox and aspirin along with beta-paula and statin. Patient was scheduled for cardiac catheterization and was taken to the cardiac catheterization with cardiology. Patient had no significant stenosis and no stenting was required per cardiology's cath report. Patient was then discharged home under stable condition was asked to continue taking her calcium channel paula, statin and effient for a better control of her CAD. - Disposition Disposition: ROUTINE DISCHARGE Condition: GOOD Patient Discharge Instructions: Please f.u with Dr Jones in the clinic in 1 to 2 days post discharge. You were admitted to the hospital for Chest pain and was found to have elevated cardiac markers. You had a cardiac catherization done with no stent placement. Diet: Regular Activity: Ad domi
--- NOTE | 2018-04-08 18:40 | OP ---
Date of Procedure: 04/08/2018 Surgeon: Calin Jones MD Admitted to Dr. Hill on 04/07/2018. The patient had a procedure on 04/08/2018. Procedure: Left heart catheterization, selective coronary arteriogram, left ventriculogram. Indication: Non-ST elevation myocardial infarction. The patient was brought to the medical lab assistant from [facility] emergency room, prepped and draped in the routine sterile fashion, given 3 mg of Versed, and 50 of fentanyl for IV sedation. She has already received Lovenox in the emergency room along with aspirin, beta-paula, and was placed on nitroglycerin drip. She was pain free when we brought her to the [facility] lab. A 6-Sami sheath was introduced in the right common femoral artery. Angio-Seal was used to close the case. The 6-Sami catheters were used to do the diagnostic catheterization. She was fou nd to have 40% LAD mid and distal, 30% mid circumflex and ostial OM1, diffuse plaquing in the RCA, no rmal ejection fraction, end-diastolic pressure of 17 mmHg. She was found to have apical ballooning s yndrome known as Takotsubo syndrome. Postoperative Diagnosis: Coronary artery disease. Anesthesia: Conscious sedation was 30 minutes. Complications: None. Blood Loss: 5 cc. Plan: Medical therapy. I will add Norvasc and Effient to her regimen. Also increase her statin. Additonal Software Engineering Specialist: Rafaela Walker. DAR/MO Voice ID: [id number] Report ID: [id number]
--- NOTE | 2018-04-09 05:23 | CON ---
Date of Consultation: 04/08/2018 Reason For Consultation: Non-ST elevation myocardial infarction. History Of Present Illness: Ms. Pace is a 77-year-old white woman. She is known to me from offic e visits, has a history of hypertension and dyslipidemia. She was at Dr. Avina's office on 2017 for pain management issues. She came into the emergency room hypertensive with substernal chest pain radiating to the arm. No EKG changes but found to have elevated troponin consistent with myoca rdial infarction. She was placed on nitroglycerin drip and was given Effient, Lovenox, and aspirin. She already takes beta-blockers at home. The patient was chest pain-free when she was seen. She wa s brought to the tag and label cutter for heart catheterization to evaluate her coronary anatomies. Past Medical History: Hypertension and dyslipidemia. Allergies: TO MORPHINE AND CODEINE. Review of Systems: Negative. Social History: Negative for tobacco. Family History: Negative. Medications: At home include atenolol, losartan, Neurontin, and Zocor. Physical Examination: Vital Signs: Stable. She was afebrile. She was in no acute distress. HEENT: Negative. Neck: Supple without any bruit, lymphadenopathy, JVD, or thyromegaly. Chest: Clear to auscultation and percussion. Cardiac: Revealed a regular rhythm and rate. No murmurs, gallops, or rubs. Abdomen: Benign. Extremities: Revealed no clubbing, cyanosis, or edema. Diagnostic Data: As stated earlier. Impression And Plan: 1.Non-ST elevation myocardial infarction. 2.Hypertension. 3.Dyslipidemia. We will plan to perform a left heart catheterization and define her coronary anatomy. We will contin ue her present regimen otherwise. We will make a decision regarding medical therapy and further vish tment depending on her catheterization results. DAR/MO Voice ID: [id number] Report ID: [id number]
== END 2018-04-08 17:41 | disposition home or self-care (01) | DRG 281 ==
LOC: ER 16:35 → ERHOLD 20:37 → 2ND 04-08 08:06
PROVIDERS: ADMIT Internal Medicine; ATTEND Family Medicine
PROC: 4A023N7 Measurement of Cardiac Sampling and Pressure, Left Heart, Percutaneous Approach (ICD-10-PCS; principal; 2018-04-08)
PROC: B2111ZZ Fluoroscopy of Multiple Coronary Arteries using Low Osmolar Contrast (ICD-10-PCS; 2018-04-08)
PROC: B2151ZZ Fluoroscopy of Left Heart using Low Osmolar Contrast (ICD-10-PCS; 2018-04-08)
DX: I21.4 Non-ST elevation (NSTEMI) myocardial infarction (principal); I51.81 Takotsubo syndrome; I25.10 Atherosclerotic heart disease of native coronary artery without angina pectoris; Z88.5 Allergy status to narcotic agent; I10 Essential (primary) hypertension; E78.5 Hyperlipidemia, unspecified; G25.81 Restless legs syndrome; F41.9 Anxiety disorder, unspecified; M48.02 Spinal stenosis, cervical region; M19.90 Unspecified osteoarthritis, unspecified site; G62.9 Polyneuropathy, unspecified
CPT/HCPCS: 36415; 71045; 80048; 80061; 80076; 81003; 82550; 82553; 83735; 83880; 84484; 85025; 85610; 85730; 93005; 93458; 94760; 96365; 96366; 96372; 96375; 99285; C1760; C1893; J0583; J1650; J2001; J2250; J2405; J2765; J3010

== ENCOUNTER 2020-10-23 12:44 | Emergency (ER) | payer OTHER ==
--- OUTSIDE RECORDS SUMMARY | 2020-10-23 12:48 | XMS REPORT | Continuity of Care Document ---
:1940 Author Organization [facility] t Address [address] [place] [address] Care Team Providers Name Role Phone Unavailable Unavailable Unavailable Problems This patient has no known problems. Allergies, Adverse Reactions, Alerts Allergy Allergy Status Severity Reaction(s) Onset Inactive Treating Comm ents Source Name Type Date Date Clinician Morphine Adverse Active Info Not [facility] Medications Ordered Filled Start Stop Current Ordering Indication Dosage Frequency Signature Comments Components Source Medication Medication Date Date Medication? Clinician (SIG) Name Name Augmentin Augmentin 2020-0 2020- No Mercedes [address] [facility] 8-11 08-18 [facility] Duloxetine Duloxetine 0 Yes Mercedes [address] [facility] HCl HCl 1-25 [facility] Diflucan Diflucan 2017-08 Yes Mercedes as [facility] 1-02 [facility] Zofran Zofran Yes Mercedes [address] [facility] Restoril Restoril Yes Mercedes [address] [facility] at bedtime [facility] [place] Yes Mercedes [address] [facility] as [facility] Flonase Flonase Yes Mercedes [address] [facility] nostril [facility] Ciprofloxac Ciprofloxac Yes Mercedes [address] [facility] in HCl in HCl [facility] Sumatriptan Sumatriptan Yes Mercedes [address] [facility] Succinate Succinate [facility] as needed [facility] Robaxin-750 Robaxin-750 Yes Mercedes [address] [facility] as [facility] Simvastatin Simvastatin Yes Mercedes [address] [facility] Cozaar Cozaar Yes Mercedes [address] [facility] Estrace Estrace Yes Mercedes not [facility] defined [facility] Tramadol Tramadol Yes Mercedes 1-[address] [facility] HCl HCl [facility] tablets as [facility] - needed for [facility] pain [facility] Omeprazole Omeprazole Yes Mercedes [address] [facility] Atenolol Atenolol Yes Mercedes [address] [facility] Lyrica Lyrica Yes [facility] 1 capsule [facility] 3 [facility] hours [facility] before l bedtime in [facility] evening Clinics Fluconazole Fluconazole Yes Mercedes [address] [facility] Gabapentin Gabapentin Yes Mercedes [address] [facility] in evening [facility] Bactrim DS Bactrim DS Yes Mercedes [address] [facility] Apriso Apriso Yes Mercedes [address] [facility] in the [facility] morning [facility] Temazepam Temazepam Yes Mercedes (Schedule [facility] IV [facility]) [facility] TK 1 C PO [facility] QD HS [facility]N l [facility] Procedures This patient has no known procedures. Encounters Start End Encounter Admission Attending Care Care Encounter Source Date/Time Date/Time Type Type Clinicians Facility Department ID 2020-10-11 2020-10-11 [id number] 2020-10-02 2020-10-02 [facility] [id number] [facility] 2020-07-31 2020-07-31 [facility] [id number] [facility] 2020-07-27 2020-07-27 [facility] [id number] [facility] 2020-06-23 2020-06-23 Out[facility] [id number] [facility] 2020-05-10 2020-05-10 Out[facility] [id number] [facility] 2020-03-21 2020-03-21 [facility] [id number] [facility] 13:20[facility]00 13:20:00 [facility] 2019-12-12 2019-12-12 [facility] [id number] [facility] 01:19:00 01:19:00 [facility] Medicine Out[facility] Clin[facility] 2019-12-07 2019-12-07 [facility] [id number] [facility] 13:30:00 13:30:00 [facility] 2019-09-22 2019-09-22 [facility] [id number] [facility] 13:00:00 13:00:00 [facility] 2019-06-23 2019-06-23 [facility] [id number] [facility] 13:40:00 13:40:00 [facility] Clin[facility] 2019-05-17 2019-05-17 [facility] [id number] [facility] 16:22:00 16:22:00 t [facility] Medicine Medicine Outpati ent Clinics 2019-05-16 2019-05-16 [facility] [id number] 22:38:00 22:38:00 t [facility] Medicine Outpati ent Clinics 2019-05-13 2019-05-13 [facility] [id number] 11:20:00 11:20:00 t [facility] Medicine Medicine Outpati ent Clinics 2018-12-14 2018-12-14 [facility] [id number] [facility] 14[facility]34:00 14:34:00 t [facility] Medicine Outpati [facility] Clinics 2018-11-17 2018-11-17 [facility] [id number] [facility] 10:33:00 10:33:00 t [facility] Medicine Outpati ent Clinics 2018-11-04 2018-11-04 [facility] [id number] [facility] 14:00:00 14:00:00 t [facility] Medicine Outpat[facility] ent Clinics 2018-09-21 2018-09-21 [facility] [id number] [facility] 14[facility]57:00 14:57:00 t [facility] Medicine Outpat[facility] Clin[facility] 2018-09-04 2018-09-04 [facility] [id number] [facility] 13:15:00 13:15:00 t [facility] Medicine Medicine Outpati ent Clinics 2018-08-18 2018-08-18 [facility] [id number] [facility] 15:07:00 15:07:00 t [facility] Medicine Outpati ent Clinics 2018-07-21 2018-07-21 [facility] [id number] 14:45:00 14:45:00 t [facility] Medicine Outpati ent Clinics 2018-07-21 2018-07-21 Outpatient Vandana Amaya [id number] [facility] 13:00:00 13:00:00 [facility] 2018-07-21 2018-07-21 Outpatient Vandana Amaya [id number] [facility] [address] 10:58:00 10:58:00 [facility] ent Clinics Results This patient has no known results.
[2020-10-23] MEDS ORDERED: NA CHLORIDE 0.9% 1,000 ML ONE (14:38)
[2020-10-23] MEDS ORDERED: ONDANSETRON 4 MG/2 ML VIAL ONE ×2 (14:38→16:14)
[2020-10-23] MEDS ORDERED: FAMOTIDINE 20 MG/2 ML VIAL IV ONE (14:38)
[2020-10-23] MEDS ORDERED: MECLIZINE HCL 12.5 MG TAB ONE (14:38)
[2020-10-23 14:42] LABS: Absolute Lymphocytes (CBC) 1.4 K/uL (0.7-4.9); Basophils % 0.3 % (0-1.3); Hematocrit 47.1 % (36.0-45.0); Lymphocytes % 17.3 % (15.3-44.8); MPV 8.7 fL (7.6-11.3); RBC Red Blood Cell Count 5.26 M/uL (3.86-4.86)
[2020-10-23 14:51] LABS: Protime INR 0.97
[2020-10-23 15:04] LABS: ALT/SGPT 16 U/L (12-78); AST/SGOT 17 U/L (15-37); Albumin 3.9 g/dL (3.4-5.0); Alkaline Phosphatase 64 U/L (45-117); BUN Blood Urea Nitrogen 16 mg/dL (7-18); Bicarbonate 22 mmol/L (21-32); Bilirubin Direct 0.2 mg/dL (0-0.2); Bilirubin Total 0.8 mg/dL (0.2-1.0); Glucose Level 106 mg/dL (74-106); Magnesium 2.3 mg/dL (1.8-2.4); NT PRO-BNP 615 pg/mL (<450); Potassium 3.6 mmol/L (3.5-5.1); Protein, Total 7.8 g/dL (6.4-8.2); Sodium Level 142 mmol/L (136-145); Troponin (Emerg Dept Use Only) < 0.02 ng/mL (0.0-0.045)
[2020-10-23] MEDS ORDERED: FENTANYL CITR 100 MCG/2 ML ONE (15:14)
--- NOTE | 2020-10-23 15:24 | ER ---
Nurse's Notes [facility] Name: Kyleigh Pace Age: 80 yrs Sex: Female : 1940 Arrival Date: 10/23/2020 Time: 12:47 Bed 6 Private MD: Diagnosis: Headache;Essential (primary) hypertension;Dissection of carotid artery-right internal carotid, level C2 Presentation: 10/23 13:39 Chief complaint: Patient states: Dizziness, N/V since yesterday morning. I can't open ca1 my eyes without getting dizzy. Pain on me neck and back of head pain. Got Cervical stenosis. Right now, I can't even hold my head up cause I am very weak and I get real dizzy. Pain on R side of head and neck. Coronavirus screen: Client denies travel out of the [place] in the last 14 days. nausea, vomiting. Client presents with at least one sign or symptom that may indicate coronavirus-19. Standard/surgical mask placed on the client. Provider contacted for isolation considerations. Ebola Screen: Patient negative for fever greater than or equal to 101.5 degrees Fahrenheit, and additional compatible Ebola Virus Disease symptoms Patient denies exposure to infectious person. Patient denies travel to an Ebola-affected area in the 21 days before illness onset. No symptoms or risks identified at this time. Initial Sepsis Screen: Does the patient meet any 2 criteria? No. Patient's initial sepsis screen is negative. Does the patient have a suspected source of infection? No. Patient's initial sepsis screen is negative. Risk Assessment: Do you want to hurt yourself or someone else? Patient reports no desire to harm self or others. Onset of symptoms was October 22, 2020. 13:39 Method Of Arrival: Wheelchair ca1 13:39 Acuity: ENOC 2 ca1 Historical: - Allergies: 13:44 Codeine; ca1 13:44 Morphine; ca1 - Home Meds: 13:44 Atenolol Oral [Active]; Aspirin Oral [Active]; ca1 - PMHx: 13:44 cervical stenosis; chronic neck and back pain; GERD; Hypertension; scoliosis; ca1 - PSHx: 13:44 Hysterectomy; ca1 - Immunization history:: Client reports receiving the 2nd dose of the Covid vaccine, Date received: September 2020 Pneumococcal vaccine is up to date, Flu vaccine is up to date. - Social history:: Smoking status: Patient denies any tobacco usage or history of. - Family history:: not pertinent. Screenin:00 Abuse screen: Denies threats or abuse. Denies injuries from another. Nutritional jl7 screening: No deficits noted. Tuberculosis screening: No symptoms or risk factors identified. Fall Risk IV access (20 points). Assessment: 14:00 General: Appears in no apparent distress. uncomfortable, well groomed, well developed, jl7 well nourished, Behavior is cooperative, anxious, crying. Pain: Complains of pain in right sided GALARZA Pain currently is 8 out of 10 on a pain scale. Pain began 1 day ago. Is continuous, Also complains of nausea, inability to perform activities of daily living. Neuro: Level of Consciousness is awake, alert, obeys commands, Oriented to person, place, time, situation, Speech is normal, Facial symmetry appears normal. Cardiovascular: Patient's skin is warm and dry. Respiratory: Airway is patent Respiratory effort is even, unlabored, Respiratory pattern is regular, symmetrical. GI: Reports nausea, vomiting, Patient currently denies diarrhea. Derm: Skin is pink, warm \T\ dry. 15:00 Reassessment: Patient appears in no apparent distress at this time. No changes from jl7 previously documented assessment. Patient and/or family updated on plan of care and expected duration. Pain level reassessed. Patient is alert, oriented x 3, equal unlabored respirations, skin warm/dry/pink. 15:30 Reassessment: Dr. Tanner at bedside discussing results and POC. jl7 Vital Signs: 13:39 BP 209 / 86; Pulse 69; Resp 18 S; Temp 97(TE); Pulse Ox 100% on R/A; Weight 65.77 kg ca1 (R); Height 5 ft. 5 in. (165.10 cm) (R); Pain 7/10; 14:50 BP 243 / 81; Pulse 66; Resp 19; Pulse Ox 100% ; jl7 15:16 BP 232 / 96; Pulse 70; Resp 19; Pulse Ox 100% ; jl7 15:30 BP 230 / 115; jl7 15:45 BP 221 / 91; Pulse 64; Resp 17 S; Pulse Ox 100% on R/A; jl7 16:06 BP 220 / 94; Pulse 63; Resp 14; Pulse Ox 100% ; Pain 3/10; jl7 16:20 BP 211 / 81; Pulse 60; Resp 15; Pulse Ox 100% ; jl7 16:45 BP 211 / 87; Pulse 65; Resp 15; Pulse Ox 100% ; Pain 3/10; jl7 13:39 Body Mass Index 24.13 (65.77 kg, 165.10 cm) ca1 [place] Coma Score: 15:41 Eye Response: spontaneous(4). Verbal Response: oriented(5). Motor Response: obeys gerard commands(6). Total: 15. ED Course: 12:47 Patient arrived in ED. am2 13:42 Triage completed. ca1 13:44 Arm band placed on right wrist. ca1 13:53 Leandro Escobar, EDISON is Primary Nurse. jl7 13:56 Tristan Tanner MD is Attending Physician. gerard 14:00 Patient has correct armband on for positive identification. Placed in gown. Bed in low jl7 position. Call light in reach. Side rails up X2. 14:00 debate director on. Pulse ox on. NIBP on. Warm blanket given. jl7 14:37 CT Head Angio In Process Unspecified. EDMS 14:37 CT Head Brain wo Cont In Process Unspecified. EDMS 14:37 Neck Angio In Process Unspecified. EDMS 14:39 XRAY Chest (1 view) In Process Unspecified. EDMS 15:20 initiated transfer to [facility]. bd 15:26 Initial lab(s) drawn, by ma, sent to lab. Urine collected: straight cath specimen, sr5 clear, Amount Returned: 175mL. Straight cath inserted, using sterile technique, 18 Fr. Specimen obtained. Inserted saline lock: 22 gauge in left forearm, using aseptic technique. Blood collected. 15:29 pt accepted in transfer to [facility] by dr Borges, admin approval given by Weston Paz. 16:20 Inserted saline lock: 20 gauge in right wrist, using aseptic technique. jl7 17:01 No provider procedures requiring assistance completed. Patient transferred, IV remains jl7 in place. intact, No redness/swelling at site. Administered Medications: 14:20 Drug: Zofran (Ondansetron) 4 mg Route: IVP; Site: left forearm; sr5 14:45 Follow up: Response: No adverse reaction; Nausea is decreased jl7 14:30 Drug: NS 0.9% 500 ml Route: IV; Rate: bolus; Site: left forearm; sr5 15:00 Follow up: Response: No adverse reaction; IV Status: Completed infusion; IV Intake: jl7 500ml 14:38 Drug: Meclizine 50 mg Route: PO; sr5 16:08 Follow up: Response: No adverse reaction jl7 14:40 Drug: Pepcid 20 mg Route: IVP; Site: left forearm; sr5 16:08 Follow up: Response: No adverse reaction jl7 15:00 Drug: NS 0.9% 1000 ml Route: IV; Rate: 125 ml/hr; Site: left wrist; jl7 17:00 Follow up: IV Status: Infusion continued upon transfer jl7 15:20 Drug: fentaNYL (PF) 25 mcg Route: IVP; Site: left wrist; jl7 15:30 Follow up: Response: No adverse reaction; Pain is decreased jl7 15:24 Drug: Trandate 20 mg Route: IVP; Site: left wrist; jl7 15:45 Follow up: Response: Blood pressure is lowered jl7 15:45 Drug: fentaNYL (PF) 25 mcg Route: IVP; Site: left wrist; jl7 16:00 Follow up: Response: No adverse reaction; Pain is decreased jl7 15:50 Drug: Trandate 10 mg Route: IVP; Site: left wrist; jl7 16:00 Follow up: Response: No adverse reaction; Blood pressure is unchanged jl7 15:50 Drug: Aspirin Chewable Tablet 324 mg Route: PO; jl7 16:15 Follow up: Response: No adverse reaction jl7 16:06 Drug: Trandate 10 mg Route: IVP; Site: left wrist; jl7 16:50 Follow up: Response: Blood pressure is unchanged jl7 16:56 Drug: niCARdipine (25mg/250mL) 5 mg/h Route: IV; Rate: per protocol; Site: left wrist; jl7 16:56 Follow up: IV Status: Infusion continued upon transfer jl7 Intake: 15:00 IV: 500ml; Total: 500ml. jl7 Outcome: 15:24 ER care complete, transfer ordered by MD. gee 17:01 Transferred by ground EMS to [facility], Transfer form completed. X-rays sent jl7 w/ patient. 17:01 Condition: stable 17:01 Discharge instructions given to patient, family, Instructed on the need for transfer, Demonstrated understanding of instructions. 17:10 Patient left the ED. jl7 Signatures: Dispatcher [employer] EDMS Tawnya Horn Corey, MD MD cha Resecker, Thomas, RN RN sr5 Leandro Escobar RN RN jl7 Annabella Eckert Cheryl RN RN ca1 Corrections: (The following items were deleted from the chart) 16:17 16:06 BP 220 / 94; Pulse 63bpm; Resp 14bpm; Pulse Ox 100%; jl7 jl7
--- NOTE | 2020-10-23 15:24 | EDPHYS ---
Physician Documentation [facility] Name: Kyleigh Pace Age: 80 yrs Sex: Female : 1940 Arrival Date: 10/23/2020 Time: 12:47 Bed 6 Private MD: KAYLAH Physician Tristan Tanner HPI: 10/23 15:14 This 80 yrs old Female presents to ER via Wheelchair with complaints of gerard Headache, Nausea/Vomiting. 15:14 The patient complains of pain to the top of head, forehead, right frontal area, right gerard temporal area and right ear. The patient describes the headache as constant. Onset: The symptoms/episode began/occurred yesterday, last night. Associated signs and symptoms: Pertinent positives: nausea, vomiting. Severity of symptoms: At its worst the pain was moderate, in the emergency department the pain is unchanged. Headache History: Denies prior headaches. The symptoms are alleviated by nothing. the symptoms are aggravated by nothing. The patient has not experienced similar symptoms in the past. Historical: - Allergies: 13:44 Codeine; ca1 13:44 Morphine; ca1 - Home Meds: 13:44 Atenolol Oral [Active]; Aspirin Oral [Active]; ca1 - PMHx: 13:44 cervical stenosis; chronic neck and back pain; GERD; Hypertension; scoliosis; ca1 - PSHx: 13:44 Hysterectomy; ca1 - Immunization history:: Client reports receiving the 2nd dose of the Covid vaccine, Date received: September 2020 Pneumococcal vaccine is up to date, Flu vaccine is up to date. - Social history:: Smoking status: Patient denies any tobacco usage or history of. - Family history:: not pertinent. ROS: 15:14 Constitutional: Negative for fever, chills, and weight loss, Eyes: Negative for injury, gerard pain, redness, and discharge, ENT: Negative for injury, pain, and discharge, Neck: Negative for injury, pain, and swelling, Cardiovascular: Negative for chest pain, palpitations, and edema, Respiratory: Negative for shortness of breath, cough, wheezing, and pleuritic chest pain, Abdomen/GI: Negative for abdominal pain, nausea, vomiting, diarrhea, and constipation, Back: Negative for injury and pain, : Negative for injury, bleeding, discharge, and swelling, MS/Extremity: Negative for injury and deformity, Skin: Negative for injury, rash, and discoloration, Psych: Negative for depression, anxiety, suicide ideation, homicidal ideation, and hallucinations, Allergy/Immunology: Negative for hives, rash, and allergies, Endocrine: Negative for neck swelling, polydipsia, polyuria, polyphagia, and marked weight changes, Hematologic/Lymphatic: Negative for swollen nodes, abnormal bleeding, and unusual bruising. 15:14 Neuro: Positive for headache. Exam: 15:14 Constitutional: This is a well developed, well nourished patient who is awake, alert, gerard and in no acute distress. Head/Face: Normocephalic, atraumatic. Eyes: Pupils equal round and reactive to light, extra-ocular motions intact. Lids and lashes normal. Conjunctiva and sclera are non-icteric and not injected. Cornea within normal limits. Periorbital areas with no swelling, redness, or edema. ENT: Nares patent. No nasal discharge, no septal abnormalities noted. Tympanic membranes are normal and external auditory canals are clear. Oropharynx with no redness, swelling, or masses, exudates, or evidence of obstruction, uvula midline. Mucous membranes moist. Neck: Trachea midline, no thyromegaly or masses palpated, and no cervical lymphadenopathy. Supple, full range of motion without nuchal rigidity, or vertebral point tenderness. No Meningismus. Chest/axilla: Normal chest wall appearance and motion. Nontender with no deformity. No lesions are appreciated. Cardiovascular: Regular rate and rhythm with a normal S1 and S2. No gallops, murmurs, or rubs. Normal PMI, no JVD. No pulse deficits. Respiratory: Lungs have equal breath sounds bilaterally, clear to auscultation and percussion. No rales, rhonchi or wheezes noted. No increased work of breathing, no retractions or nasal flaring. Abdomen/GI: Soft, non-tender, with normal bowel sounds. No distension or tympany. No guarding or rebound. No evidence of tenderness throughout. Back: No spinal tenderness. No costovertebral tenderness. Full range of motion. Female : Normal external genitalia. Skin: Warm, dry with normal turgor. Normal color with no rashes, no lesions, and no evidence of cellulitis. MS/ Extremity: Pulses equal, no cyanosis. Neurovascular intact. Full, normal range of motion. Neuro: Awake and alert, GCS 15, oriented to person, place, time, and situation. Cranial nerves II-XII grossly intact. Motor strength 5/5 in all extremities. Sensory grossly intact. Cerebellar exam normal. Normal gait. Psych: Awake, alert, with orientation to person, place and time. Behavior, mood, and affect are within normal limits. 15:44 ECG was reviewed by the Attending Physician. [facility] Vital Signs: 13:39 BP 209 / 86; Pulse 69; Resp 18 S; Temp 97(TE); Pulse Ox 100% on R/A; Weight 65.77 kg ca1 (R); Height 5 ft. 5 in. (165.10 cm) (R); Pain 7/10; 14:50 BP 243 / 81; Pulse 66; Resp 19; Pulse Ox 100% ; jl7 15:16 BP 232 / 96; Pulse 70; Resp 19; Pulse Ox 100% ; jl7 15:30 BP 230 / 115; jl7 15:45 BP 221 / 91; Pulse 64; Resp 17 S; Pulse Ox 100% on R/A; jl7 16:06 BP 220 / 94; Pulse 63; Resp 14; Pulse Ox 100% ; Pain 3/10; jl7 16:20 BP 211 / 81; Pulse 60; Resp 15; Pulse Ox 100% ; jl7 16:45 BP 211 / 87; Pulse 65; Resp 15; Pulse Ox 100% ; Pain 3/10; jl7 13:39 Body Mass Index 24.13 (65.77 kg, 165.10 cm) ca1 [place] Coma Score: 15:41 Eye Response: spontaneous(4). Verbal Response: oriented(5). Motor Response: obeys gerard commands(6). Total: 15. MDM: 13:56 Patient medically screened. gerard 15:41 Differential diagnosis: cluster headache, epidural hematoma, hypertensive headache, gerard intracerebral hemorrhage, migraine, subarachnoid bleed, temporal arteritis, tension headache, vasomotor headache. Data reviewed: vital signs, nurses notes, lab test result(s), EKG, radiologic studies, CT scan, plain films. Data interpreted: monitoring tech: rate is 70 beats/min, rhythm is regular, Pulse oximetry: on room air is 100 %. Test interpretation: by ED physician or midlevel provider: ECG, plain radiologic studies. Counseling: I had a detailed discussion with the patient and/or guardian regarding: the historical points, exam findings, and any diagnostic results supporting the discharge/admit diagnosis, lab results, radiology results, the need to transfer to another facility, for higher level of care, [facility] does not immediately have the required specialist. 10/23 14:02 Order name: Basic Metabolic Panel [facility] 10/23 14:02 Order name: CBC with Diff [facility] 10/23 14:02 Order name: LFT's [facility] 10/23 14:02 Order name: Magnesium [facility] 10/23 14:02 Order name: NT PRO-BNP [facility] 10/23 14:02 Order name: PT-INR [facility] 10/23 14:02 Order name: Troponin (emerg Dept Use Only) [facility] 10/23 14:02 Order name: XRAY Chest (1 view) [facility] 10/23 14:02 Order name: CT Head Angio [facility] 10/23 14:02 Order name: CT Head Brain wo Cont [facility] 10/23 14:02 Order name: Urine Culture [facility] 10/23 14:02 Order name: Basic Metabolic Panel [facility] 10/23 14:02 Order name: CBC with Automated Diff [facility] 10/23 16:35 Order name: Urine Dipstick--Ancillary (enter results) 10/23 14:02 Order name: EKG; Complete Time: 14:03 [facility] 10/23 14:02 Order name: Cardiac monitoring; Complete Time: 15:14 [facility] 10/23 14:02 Order name: EKG - Nurse/Tech; Complete Time: 16:21 [facility] 10/23 14:05 Order name: Neck Angio [facility] 10/23 14:02 Order name: IV Saline Lock; Complete Time: 15:14 [facility] 10/23 14:02 Order name: Labs collected and sent; Complete Time: 15:14 [facility] 10/23 14:02 Order name: O2 Per Protocol; Complete Time: 15:13 [facility] 10/23 14:02 Order name: O2 Sat Monitoring; Complete Time: 15:13 [facility] 10/23 14:02 Order name: Urine Dipstick-Ancillary (obtain specimen); Complete Time: 15:26 gerard EC:44 Rate is 68 beats/min. Rhythm is regular. QRS [place] is Normal. [place] interval is normal. QRS gerard interval is normal. QT interval is prolonged at 492 msec. No Q waves. T waves are Normal. No ST changes noted. Clinical impression: NSR w/ Non-specific ST/T Changes, LVH, and No evidence of ischemia. Administered Medications: 14:20 Drug: Zofran (Ondansetron) 4 mg Route: IVP; Site: left forearm; sr5 14:45 Follow up: Response: No adverse reaction; Nausea is decreased jl7 14:30 Drug: NS 0.9% 500 ml Route: IV; Rate: bolus; Site: left forearm; sr5 15:00 Follow up: Response: No adverse reaction; IV Status: Completed infusion; IV Intake: jl7 500ml 14:38 Drug: Meclizine 50 mg Route: PO; sr5 16:08 Follow up: Response: No adverse reaction jl7 14:40 Drug: Pepcid 20 mg Route: IVP; Site: left forearm; sr5 16:08 Follow up: Response: No adverse reaction jl7 15:00 Drug: NS 0.9% 1000 ml Route: IV; Rate: 125 ml/hr; Site: left wrist; jl7 17:00 Follow up: IV Status: Infusion continued upon transfer jl7 15:20 Drug: fentaNYL (PF) 25 mcg Route: IVP; Site: left wrist; jl7 15:30 Follow up: Response: No adverse reaction; Pain is decreased jl7 15:24 Drug: Trandate 20 mg Route: IVP; Site: left wrist; jl7 15:45 Follow up: Response: Blood pressure is lowered jl7 15:45 Drug: fentaNYL (PF) 25 mcg Route: IVP; Site: left wrist; jl7 16:00 Follow up: Response: No adverse reaction; Pain is decreased jl7 15:50 Drug: Trandate 10 mg Route: IVP; Site: left wrist; jl7 16:00 Follow up: Response: No adverse reaction; Blood pressure is unchanged jl7 15:50 Drug: Aspirin Chewable Tablet 324 mg Route: PO; jl7 16:15 Follow up: Response: No adverse reaction jl7 16:06 Drug: Trandate 10 mg Route: IVP; Site: left wrist; jl7 16:50 Follow up: Response: Blood pressure is unchanged jl7 16:56 Drug: niCARdipine (25mg/250mL) 5 mg/h Route: IV; Rate: per protocol; Site: left wrist; jl7 16:56 Follow up: IV Status: Infusion continued upon transfer jl7 Disposition: 03/15/21 15:24 Transfer ordered to [facility]. Diagnosis are Headache, Essential (primary) hypertension, Dissection of carotid artery - right internal carotid, level C2. - Reason for transfer: Higher level of care. - Accepting physician is to [facility]. - Condition is Fair. - Problem is new. - Symptoms have improved. Critical care time excluding procedures: 15:41 Critical care time: Bedside Care: 30 minutes, Consultation: 10 minutes, Family gerard Intervention: 8 minutes. Total time: 48 minutes Signatures: Dispatcher [employer] Tristan Oliver MD MD cha Resecker, Sam RN RN sr5 Leandro Escobar RN RN jl7 Yessi Zapata RN RN ca1 Corrections: (The following items were deleted from the chart) 17:10 15:24 10/23/2020 15:24 Transfer ordered to [facility]. Diagnosis is jl7 Headache; Essential (primary) hypertension; Dissection of carotid artery - right internal carotid, level C2. Reason for transfer: Higher level of care. Accepting physician is to [facility]. Condition is Fair. Problem is new. Symptoms have improved. gerard
[2020-10-23] MEDS ORDERED: LABETALOL HCL 100 MG/20 ML ONE (15:35)
[2020-10-23] MEDS ORDERED: ASPIRIN 81 MG CHEWABLE TABLET ONE (16:01)
--- NOTE | 2020-10-23 16:45 | RAD REPORT ---
EXAM DESCRIPTION: CT - Head Brain Wo Cont - 10/23/2020 2:37 pm CLINICAL HISTORY: Dizziness, headache COMPARISON: 2012 TECHNIQUE: Computed axial tomography of the head was obtained. IV contrast was not requested. All CT scans are performed using dose optimization technique as appropriate and may include automated exposure control or mA/KV adjustment according to patient size. FINDINGS: An intracranial bleed is not seen . The ventricles are normal in caliber. No extra-axial fluid collection is noted. Basal ganglia calcification Mild low-density areas within periventricular, deep and subcortical white matter likely represent isc hemic changes secondary to small vessel disease. Fluid within the sinuses/ mastoids is not seen. IMPRESSION: No acute intracranial abnormality is seen. If patient's symptoms persist MRI of the bra in would be recommended.
--- NOTE | 2020-10-23 16:55 | RAD REPORT ---
EXAM DESCRIPTION: Kylie Angio10/23/2020 2:37 pm CLINICAL HISTORY: Dizziness, headache, neck COMPARISON: None TECHNIQUE: 50 cc Isovue 370 was administered intravenously. 3D MIP reconstruction performed All CT scans are performed using dose optimization technique as appropriate and may include automated exposure control or mA/KV adjustment according to patient size. FINDINGS: Short-segment dissection right internal carotid artery C2 level. 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 Mild 0-49% stenosis Moderate 50-69% stenosis Severe 70-99% stenosis
--- NOTE | 2020-10-23 16:57 | RAD REPORT ---
EXAM DESCRIPTION: CTHead angio10/23/2020 2:37 pm CLINICAL HISTORY: Dizziness/headache/neck pain COMPARISON: None TECHNIQUE: CT angiogram of the head was obtained. 3D MIPS reconstruction performed. All CT scans are performed using dose optimization technique as appropriate and may include automated exposure control or mA/KV adjustment according to patient size. FINDINGS: The basilar, internal carotid, anterior cerebral, middle cerebral and posterior cerebral a rteries are normal caliber. An aneurysm is not seen. Mild atherosclerosis A significant stenosis is not noted. IMPRESSION: No acute abnormality is displayed
[2020-10-23 16:59] LABS: Urine Blood 3+ (NEG); Urine Glucose NEGATIVE (NEG); Urine Protein 2+ (NEG); Urine Specific Gravity 1.015 (1.005-1.030)
[2020-10-23] MEDS ORDERED: Nicardipine/NS 25 MG/250 ML KIT IV ONE (17:02)
--- NOTE | 2020-10-23 17:36 | RAD REPORT ---
EXAM DESCRIPTION: RAD - Chest Single View - 10/23/2020 2:39 pm CLINICAL HISTORY: COUGH COMPARISON: March 2018 TECHNIQUE: AP portable chest image was obtained 10/23/2020 2:39 pm . FINDINGS: Chronic interstitial lung changes are present with no failure, infiltrate or mass. Heart a nd vasculature are normal. No measurable pleural effusion and no pneumothorax. No acute bony abnormal ity seen. Dense aortic calcifications are present with tortuosity but no aneurysm confirmed. IMPRESSION: No acute cardiopulmonary process. No significant change from comparison study.
[2020-10-23 23:15] VITALS: TEMP 97; O2SAT 100
[2020-10-23 23:27] VITALS: BP 211/87
--- NOTE | 2020-10-25 04:37 | EKG ---
Test Date: 2020-10-23 Test Time: 14:32:04 Floor Surfacer: MADDY MEASUREMENT RESULTS: Intervals: Rate: 68 NJ: 194 QRSD: 78 QT: 492 QTc: 523 [place]: P: 25 NJ: 194 QRS: -15 T: 66 INTERPRETIVE STATEMENTS: Normal sinus rhythm Moderate voltage criteria for LVH, may be normal variant Nonspecific ST abnormality Prolonged QT Abnormal ECG Compared to ECG 04/07/2018 22:15:50 Left ventricular hypertrophy now present ST (T wave) deviation now present Prolonged QT interval now present Myocardial infarct finding no longer present Electronically Signed On 10-25-20 04:32:48 CDT by Calin Jones
== END 2020-10-23 17:10 | disposition short-term general hospital (02) ==
LOC: ER 12:44
DX: I77.71 Dissection of carotid artery (principal); R51.9 Headache, unspecified; I10 Essential (primary) hypertension; K21.9 Gastro-esophageal reflux disease without esophagitis; M41.9 Scoliosis, unspecified; M54.2 Cervicalgia; G89.29 Other chronic pain; M54.9 Dorsalgia, unspecified
CPT/HCPCS: 93005; 87088; 85025; 87086; 80048; 36415; 83735; 85610; 82565; 80076; 81003; 84484; 83880; 70450; 70496; 70498; 71045; Q9967; J3010; J7030; J2405 ×2; 51702; 99285